=== PATIENT | male | born 1955 | race American Indian/Alaskan Native ===

== ENCOUNTER 2019-12-04 13:24 | Emergency (ER) | payer MEDICARE ==
--- NOTE | 2019-12-04 15:27 | Event Note ---
ED Screening Note Date of service: 12/04/19 Time: 15:22 ED Screening Note: 64 y o male presents with sob with chest pain, with blood in his urine pmh of kidney stone, chf, dm This initial assessment/diagnostic orders/clinical plan/treatment(s) is/are subject to change based on patients health status, clinical progression and re- assessment by fellow clinical providers in the ED. Further treatment and workup at subsequent clinical providers discretion. Patient/guardian urged not to elope from the ED as their condition may be serious if not clinically assessed and managed. Initial orders include: labs, ua main eval
--- NOTE | 2019-12-04 16:01 | XRay Report ---
CHEST PA AND LATERAL VIEWS INDICATION: Weakness. COMPARISON: None. FINDINGS: Support devices: None. Heart: Within normal limits. Lungs/Pleura: Minimal bibasilar opacities may be atelectatic. Lungs are otherwise clear. No pleural a bnormality. IMPRESSION: 1. Somewhat streaky bibasilar opacities are likely atelectatic but nonspecific. No other significant findings. Signer Name: Kiel Garcia MD Signed: 12/04/2019 3:56 PM Workstation Name: [id number]
[2019-12-04 16:33] LABS: Basophils % (Auto) 0.3 % (0.0-1.8); Eosinophils % (Auto) 0.3 % (0.0-4.3); Hematocrit 41.8 % (35.5-45.6); Hemoglobin 13.7 gm/dl (11.8-15.2); Lymphocytes # (Auto) 0.9 K/mm3 (1.2-5.4); Lymphocytes % (Auto) 28.7 % (13.4-35.0); Mean Corpuscular HGB Conc 33 % (32-34); Mean Corpuscular Volume 93 fl (84-94); Monocytes # (Auto) 0.5 K/mm3 (0.0-0.8); Platelet Count 108 K/mm3 (140-440); Red Blood Count 4.52 M/mm3 (3.65-5.03); Red Cell Distribution Width 13.2 % (13.2-15.2)
[2019-12-04 16:55] LABS: Alanine Aminotransferase 127 units/L (7-56); Albumin 4.4 g/dL (3.9-5); BUN/Creatinine Ratio 13; Blood Urea Nitrogen 16 mg/dL (9-20); Calcium 9.4 mg/dL (8.4-10.2); Hemolysis Index 1
[2019-12-04 17:04] LABS: Bilirubin,Urine NEG (Negative); Blood,Urine NEG (Negative); Color,Urine Amber (Yellow); Mucus,Urine FEW /HPF; Protein,Urine <15 mg/dL mg/dL (Negative); Urobilinogen,Urine < 2.0 mg/dL (<2.0)
--- NOTE | 2019-12-05 01:07 | Emergency Department Report ---
HPI - General Chief Complaint: Weakness Time Seen by Provider: 12/04/19 23:07 - HPI HPI: 64-year-old -Faro[place] male presents to the emergency department with complaints of generalized weakness, decreased appetite, body aches and some shortness of breath that is been happening for the past few days. He went to the [place] emergency/urgent care last night and apparently was told to go to [facility]. The patient did not go last night but checked with them again this morning and they once again apparently insisted he come to the emergency department here. He says that there is some subjective fever. He denies any nausea, vomiting, diarrhea but says that he did see some hematuria over the weekend. Patient has a history of hypertension, CHF, diabetes, kidney stones and previous surgery for kidney cancer. He has not taken anything for his symptoms prior to presentation today. ED Past Medical Hx - Past Medical History Previous Medical History?: Yes Hx Hypertension: Yes Hx Congestive Heart Failure: Yes Hx Diabetes: Yes Hx Kidney Stones: Yes - Surgical History Past Surgical History?: Yes Additional Surgical History: surgery for kidney cancer - Social History Smoking Status: Never Smoker Substance Use Type: None - Medications Home Medications: Home Medications Medication Instructions Recorded Confirmed Last Taken Type Albuterol INH(or & Nicu Only) 2 puff IH QID PRN #8.5 gram 12/05/19 Unknown Rx [ProAir HFA Inhaler] Azithromycin [Zithromax Z-ABELARDO] 250 mg PO DAILY #6 tab 12/05/19 Unknown Rx ED Review of Systems ROS: Stated complaint: SHORT OF BREATH/NOT EATING Other details as noted in HPI Comment: All other systems reviewed and negative Constitutional: weakness. denies: chills, fever Eyes: denies: eye pain, vision change ENT: denies: ear pain, throat pain Respiratory: shortness of breath. denies: orthopnea Cardiovascular: denies: palpitations, edema Gastrointestinal: abdominal pain. denies: vomiting Genitourinary: hematuria. denies: dysuria Musculoskeletal: myalgia. denies: joint swelling Skin: denies: rash, lesions Neurological: denies: headache, numbness Physical Exam - Physical Exam Vital Signs: Vital Signs 12/04/19 12/04/19 15:11 22:00 Temperature 99.0 F 98.7 F Pulse Rate 94 H 90 Respiratory 18 20 Rate Blood Pressure 140/85 143/87 O2 Sat by Pulse 97 95 Oximetry Physical Exam: GENERAL: The patient is well-developed well-nourished. HENT: Normocephalic. Atraumatic. Patient has moist mucous membranes. EYES: Extraocular motions are intact. NECK: Supple. Trachea is midline. CHEST/LUNGS: Clear to auscultation. There is no respiratory distress noted. HEART/CARDIOVASCULAR: Regular. There is no tachycardia. ABDOMEN: Abdomen is soft, nontender. Patient has normal bowel sounds. SKIN: Skin is warm and dry. NEURO: The patient is awake, alert, and oriented. The patient is cooperative. The patient has no focal neurologic deficits. Normal speech. MUSCULOSKELETAL: There is no tenderness or deformity. There is no limitation range of motion. There is no evidence of acute injury. ED Course Vital Signs 12/04/19 12/04/19 15:11 22:00 Temperature 99.0 F 98.7 F Pulse Rate 94 H 90 Respiratory 18 20 Rate Blood Pressure 140/85 143/87 O2 Sat by Pulse 97 95 Oximetry - Consultations Consultation #1: 12/05/19 05:[address] Orta at the [place] [facility]. She was able to look up previous labs and the elevated LFTs are new. Apparently the patient was told by the "advice nurse" that he should go to [facility] emergency department for possible testing of the coronavirus, Covid-19. I explained that we are unable to test for this in the emergency department. The patient does not appear to require admission at this time. ED Medical Decision Making - Lab Data Result diagrams: 12/04/19 16:01 12/04/19 16:01 - EKG Data -: EKG Interpreted by Me EKG shows normal: sinus rhythm, axis, intervals, QRS complexes, ST-T waves Rate: normal - EKG Data When compared to previous EKG there are: previous EKG unavailable Interpretation: normal EKG - Radiology Data Radiology results: report reviewed, image reviewed interpreted by me: Chest x-ray does not show any acute process. There are no pleural effusions, obvious pneumonia and there is no pneumothorax. ULTRASOUND ABDOMEN, LIMITED (RIGHT UPPER QUADRANT) INDICATION: abd pain, elevated liver enzymes. COMPARISON: None available. FINDINGS: Pancreas: Visualized portion shows no significant abnormality. Liver: Diffuse fatty infiltration of liver Gallbladder: Possible sludge versus tiny calculi neck of the gallbladder Bile ducts: Normal. Common Bile Duct measures 2.3 mm. Free fluid: None. Additional Findings: None. IMPRESSION: 1. Possible small calculi within the gallbladder 2. Hepatic steatosis - Medical Decision Making This patient presents to the emergency department with complaint of some subjective fever, shortness of breath, body aches, abdominal pain. Patient's labs have been unremarkable except for some elevated LFTs and elevated LDH. His vital signs been stable throughout his ED course including being afebrile. There is been no hypoxia. The patient does not have any signs of shortness of breath or any respiratory or acute distress. Chest x-ray does not show any obvious pneumonia but was read by radiology as having some streaky opacities most consistent with atelectasis. An abdominal ultrasound was done that shows hepatic steatosis and a possible small gallstone without signs of cholecystitis. The patient was negative for influenza a and B. For all these reasons the patient appears safe for discharge home at this time. I spoke with Dr. Orta at the [place] [facility] and they will facilitate follow-up for the patient. I also recommended to the patient that he self quarantine for the next 14 days as he appears concerned for having the coronavirus. He has been instructed to look at the information on the [facility] website and contact the department of health for further instructions. Also, the patient has been instructed to follow-up with the closest emergency department immediately with any worsening of his symptoms including any worsening shortness of breath, high intractable fevers, or respiratory distress. - Differential Diagnosis Bronchitis, viral URI, pneumonia, influenza Critical Care Time: No Critical care attestation.: If time is entered above; I have spent that time in minutes in the direct care of this critically ill patient, excluding procedure time. ED Disposition Clinical Impression: Elevated liver enzymes, Viral syndrome Upper respiratory infection Qualifiers: URI type: unspecified URI Qualified Code(s): J06.9 - Acute upper respiratory infection, unspecified Disposition: DC-01 TO HOME OR SELFCARE Is pt being admited?: No Condition: Stable Instructions: Upper Respiratory Infection (ED), Viral Syndrome (ED) Additional Instructions: Please follow-up with your primary care physician. You will also need to see a premix operator concentrate, through [place], regarding your elevated liver enzymes. The ultrasound showed a possible small gallstone. Prescriptions: Albuterol INH(or & Nicu Only) [ProAir HFA Inhaler] 2 puff IH QID PRN #8.5 gram PRN Reason: Shortness Of Breath Azithromycin [Zithromax Z-ABELARDO] 250 mg PO DAILY #6 tab Referrals: YAMILET MOROCHO [Other] - [place]
--- NOTE | 2019-12-05 03:07 | Ultrasound Report ---
ULTRASOUND ABDOMEN, LIMITED (RIGHT UPPER QUADRANT) INDICATION: abd pain, elevated liver enzymes. COMPARISON: None available. FINDINGS: Pancreas: Visualized portion shows no significant abnormality. Liver: Diffuse fatty infiltration of liver Gallbladder: Possible sludge versus tiny calculi neck of the gallbladder Bile ducts: Normal. Common Bile Duct measures 2.3 mm. Free fluid: None. Additional Findings: None. IMPRESSION: 1. Possible small calculi within the gallbladder 2. Hepatic steatosis Signer Name: Matthew Enriquez MD Signed: 12/05/2019 3:03 AM Workstation Name: [id number]
[2019-12-05 04:58] VITALS: BP 120/75
== END 2019-12-05 04:57 | disposition home or self-care (01) ==
LOC: ED 13:24
DX: J06.9 Acute upper respiratory infection, unspecified (principal); R94.5 Abnormal results of liver function studies; B34.9 Viral infection, unspecified; I11.0 Hypertensive heart disease with heart failure; I50.9 Heart failure, unspecified; E11.9 Type 2 diabetes mellitus without complications; Z87.448 Personal history of other diseases of urinary system; Z98.890 Other specified postprocedural states; Z79.2 Long term (current) use of antibiotics; Z79.899 Other long term (current) drug therapy
CPT/HCPCS: 36415; 71046; 76705; 80053; 81001; 82550; 83615; 84443; 84484; 85025; 87400; 93005; 93010